=== PATIENT | female | born 1990 | race Two or more races ===

== ENCOUNTER 2024-02-25 10:45 | Observation (INO) | payer OTHER | END 2024-02-25 12:30 | disposition home or self-care (01) | LOC: UNDOADMOB 10:45 → LDRP 10:45 | PROVIDERS: ADMIT Obstetrics & Gynecology; ATTEND Obstetrics & Gynecology | DX: O24.419 Gestational diabetes mellitus in pregnancy, unspecified control (principal); Z3A.37 37 weeks gestation of pregnancy | CPT/HCPCS: 59025; 76818; 81002; 82948; 82962; 94760; G0378 ==

== ENCOUNTER 2024-02-28 09:29 | Observation (INO) | payer OTHER | END 2024-02-28 11:48 | disposition home or self-care (01) | LOC: UNDOADMOB 09:29 → LDRP 09:29 | PROVIDERS: ADMIT Obstetrics & Gynecology; ATTEND Obstetrics & Gynecology | DX: O24.419 Gestational diabetes mellitus in pregnancy, unspecified control (principal); O26.893 Other specified pregnancy related conditions, third trimester; R10.9 Unspecified abdominal pain; Z3A.37 37 weeks gestation of pregnancy | CPT/HCPCS: 59025; 76818; 81002; 82948; 82962; G0378 ==

== ENCOUNTER 2024-03-03 07:22 | Observation (INO) | payer OTHER | END 2024-03-03 14:43 | disposition home or self-care (01) | LOC: LDRP 12:31 → UNDOADMOB 12:31 → LDRP 13:17 | PROVIDERS: ADMIT Obstetrics & Gynecology; ATTEND Obstetrics & Gynecology | DX: O24.419 Gestational diabetes mellitus in pregnancy, unspecified control (principal); Z3A.38 38 weeks gestation of pregnancy | CPT/HCPCS: 59025; 76818; 81002; 82962; 94760; G0378 ==

== ENCOUNTER 2024-03-06 10:03 | Inpatient (IN) | payer OTHER ==
[2024-03-05 11:27] LABS: Eosinophils # (auto) 0.1 10 ^3/uL (0-0.8); Hemoglobin 9.8 g/dL (12.2-16.2); Lymphocytes # (auto) 1.5 10 ^3/uL (0.4-5.4); Monocytes # (auto) 0.7 10 ^3/uL (0-1.3); Nucleated Red Blood Cells % 0.1 %
[2024-03-05 11:29] LABS: Basophils # (auto) 0.1 10 ^3/uL (0-0.2); Basophils % (auto) 0.6 % (0.0-2.0); Eosinophils % (auto) 0.6 % (0.0-7.0); Hematocrit 30.9 % (36.0-46.0); Lymphocytes % (auto) 15.9 % (10.0-50.0); Mean Corpuscular Hemoglobin 23.7 pg (28.0-32.0); Mean Corpuscular Hgb Conc. 31.7 g/dL (32.0-36.0); Mean Corpuscular Volume 74.7 fL (80.0-100.0); Monocytes % (auto) 7.5 % (0.0-12.0); Neutrophils # (auto) 7.1 10 ^3/uL (1.6-8.6); Neutrophils % (auto) 75.4 % (37.0-80.0); Red Blood Cells 4.13 10^6/uL (4.0-5.20); Red Cell Distribution Width 17.3 % (11.8-14.3); White Blood Cell 9.4 10^3/uL (4.4-10.8)
[2024-03-05 11:35] LABS: Urine Bacteria FEW /hpf (None Seen); Urine Blood Negative /uL (Negative); Urine Mucus FEW (None Seen); Urine Protein, UAD 1+ (Negative); Urine Urobilinogen Normal (Negative); Urine WBC 5 /hpf (0 - 5)
[2024-03-05 11:36] LABS: Urine Color Yellow (Yellow)
[2024-03-05 11:37] LABS: Urine Clarity Cloudy (Clear)
[2024-03-05 11:46] LABS: INR 0.93 (0.9-1.15); Partial Thromboplastin Time 26.8 SEC (24.5-34.5); Prothrombin Time 9.9 sec (9.3-11.8)
[2024-03-05 11:47] LABS: Albumin 3.8 g/dL (3.2-4.8); Alkaline Phosphatase 140 U/L (46-116); Anion Gap 7 (5-15); Aspartate Aminotransferase 8 U/L (13-40); Bilirubin, Total 0.4 mg/dL (0.2-1.0); Calcium 8.8 mg/dL (8.5-10.1); Carbon Dioxide 22 mmol/L (20-30); Chloride 107 mmol/L (98-107); Glucose 93 mg/dL (74-106); Potassium 3.6 mmol/L (3.5-5.1); Sodium 136 mmol/L (136-145); Total Protein 6.8 g/dL (5.7-8.2)
[2024-03-05 11:49] LABS: Alanine Aminotransferase < 9 U/L (7-40); BUN/Creatinine Ratio 10.6 (10.0-20.0); Blood Urea Nitrogen < 5 mg/dL (9-23)
[2024-03-05 11:53] LABS: Amphetamine Screen, Urine Neg (NEGATIVE); Barbiturate Scree,Urine Neg (NEGATIVE); Benzodiazephine Screen, Urine Neg (NEGATIVE); Cannabinoid Screen, Urine Neg (NEGATIVE); Cocaine Screen, Urine Neg (NEGATIVE); Opiate Scree,Urine Neg (NEGATIVE); Phencyclidine Screen, Urine Neg (NEGATIVE)
[~2024-03-06] VITALS: Ht 175.3 cm; Wt 134.7 kg
[2024-03-07] VITALS (18 sets, daily range): BP systolic 81–123; BP diastolic 42–75; PULSE 81–101; RESP 16–18; TEMP 97.9–99.1; O2SAT 91–98
[2024-03-07] MEDS: LACTATED RINGER'S 1,000 ML IV ONE (05:03)
[2024-03-07] MEDS ORDERED: MORPHINE SULF PF 5 MG/10 ML VIAL ONE (06:42)
[2024-03-07] MEDS ORDERED: oxyTOCIN 10 UNIT/ML 10ML VIAL ONE (06:42)
[2024-03-07] MEDS ORDERED: ePHEDrine SULFATE 50 MG/ML AMP ONE (06:43)
[2024-03-07] MEDS: ceFAZolin 2 GM/D5W50ml 50 ML IV ONE (06:44)
[2024-03-07] MEDS: GUM (CHEWING) 1 GUM CHEW CHEW ONE (07:15)
[2024-03-07] MEDS ORDERED: ONDANSETRON HCL 4 MG/2 ML VIAL IV PRN ×2 (07:15→08:30)
[2024-03-07] MEDS: LACT. RINGERS/OXYTOCIN 20UNITS 1,000 ML IV ONE (07:15)
[2024-03-07] MEDS ORDERED: ONDANSETRON HCL 4 MG/2 ML VIAL ONE (07:19)
[2024-03-07] MEDS ORDERED: PHENYLEPHRINE HCL 10 MG/ML VL ONE (07:25)
[2024-03-07] MEDS ORDERED: HYDROmorphone HCL 2 MG/ML VL/or syr IV PRN ×2 (08:30)
[2024-03-07] MEDS ORDERED: KETOROLAC TROMETH 30 MG/ML 1ML VIAL IV PRN (08:30)
[2024-03-07] MEDS ORDERED: diphenhdrAMINE HCL 50 MG/1 ML VL IV PRN (08:30)
[2024-03-07] MEDS ORDERED: DexAMETHasone SOD PHOS 10MG/1ML VIAL INJ IV PRN (08:30)
[2024-03-07] MEDS: NALBUPHINE HCL 10 MG/1ml INJECTION SUBCUT ONE (08:30)
[2024-03-07] MEDS: ONDANSETRON HCL 4 MG/2 ML VIAL IV ONE (08:30)
[2024-03-07] MEDS ORDERED: MEPERIDINE HCL (25 MG/ML) 1ML VIAL IV PRN (08:30)
[2024-03-07] MEDS ORDERED: NALOXONE HCL 0.4 MG/ML VIAL IV PRN (08:30)
[2024-03-07 10:07] LABS: RPR Non Reactive (Non Reactive)
[2024-03-07] MEDS ORDERED: IBUP-1456 PO (14:39)
[2024-03-07] MEDS ORDERED: DOCU-94 PO (14:39)
[2024-03-07] MEDS ORDERED: HYDR-4902 PO (14:39)
[2024-03-07] MEDS ORDERED: ceFAZolin 1GM/50ML 50 ML IV SCH (15:00)
[2024-03-07] MEDS: ACETAMINOPHEN IV 1000 MG/100ML (10MG/ML) IV PRN (17:12)
[2024-03-07] MEDS: LACTATED RINGER'S 1,000 ML IV SCH (18:47)
[2024-03-07] MEDS: ceFAZolin 1GM/50ML 50 ML IV SCH (19:29)
[2024-03-07 21:57] LABS: Basophils # (auto) 0.1 10 ^3/uL (0-0.2); Eosinophils # (auto) 0 10 ^3/uL (0-0.8); Eosinophils % (auto) 0.4 % (0.0-7.0); Hemoglobin 9.2 g/dL (12.2-16.2); Lymphocytes # (auto) 1.5 10 ^3/uL (0.4-5.4); Monocytes # (auto) 0.8 10 ^3/uL (0-1.3); Neutrophils # (auto) 6.6 10 ^3/uL (1.6-8.6)
[2024-03-07 21:58] LABS: Basophils % (auto) 0.6 % (0.0-2.0); Hematocrit 29.2 % (36.0-46.0); Lymphocytes % (auto) 16.3 % (10.0-50.0); Mean Corpuscular Hemoglobin 24.2 pg (28.0-32.0); Mean Corpuscular Hgb Conc. 31.6 g/dL (32.0-36.0); Mean Corpuscular Volume 76.7 fL (80.0-100.0); Neutrophils % (auto) 73.7 % (37.0-80.0); Red Blood Cells 3.81 10^6/uL (4.0-5.20); Red Cell Distribution Width 17.7 % (11.8-14.3)
[2024-03-08] VITALS (12 sets, daily range): BP systolic 91–129; BP diastolic 49–86; PULSE 89–126; RESP 16–18; TEMP 97.9–98.9; O2SAT 91–97
[2024-03-08 06:39] LABS: Eosinophils # (auto) 0 10 ^3/uL (0-0.8); Hemoglobin 8.8 g/dL (12.2-16.2); Monocytes # (auto) 0.7 10 ^3/uL (0-1.3); Nucleated Red Blood Cells % 0.1 %
[2024-03-08 06:40] LABS: Basophils # (auto) 0.1 10 ^3/uL (0-0.2); Basophils % (auto) 0.8 % (0.0-2.0); Eosinophils % (auto) 0.2 % (0.0-7.0); Hematocrit 27.4 % (36.0-46.0); Lymphocytes # (auto) 1.4 10 ^3/uL (0.4-5.4); Lymphocytes % (auto) 17.2 % (10.0-50.0); Mean Corpuscular Hemoglobin 24.1 pg (28.0-32.0); Mean Corpuscular Hgb Conc. 32.2 g/dL (32.0-36.0); Mean Corpuscular Volume 74.9 fL (80.0-100.0); Monocytes % (auto) 8.3 % (0.0-12.0); Neutrophils % (auto) 73.5 % (37.0-80.0); Red Blood Cells 3.65 10^6/uL (4.0-5.20); Red Cell Distribution Width 17.1 % (11.8-14.3); White Blood Cell 8.2 10^3/uL (4.4-10.8)
[2024-03-08] MEDS ORDERED: IBUPROFEN 800 MG TAB PO PRN (06:45)
[2024-03-08] MEDS: DOCUSATE CALCIUM 240 MG CAP PO SCH (09:52)
[2024-03-08] MEDS: DOCUSATE SOD 100 MG CAP PO SCH (09:52)
[2024-03-08] MEDS: HYDROcodone-ACET 5/325MG TAB PO PRN (09:53)
[2024-03-08] MEDS: SIMETHICONE 80 MG CHEWABLE TABLET PO SCH (12:09)
[2024-03-08] MEDS: SODIUM CHLOR 0.9% PF (SALINE LOCK) 10ML VIAL/SYR IV SCH (14:00)
[2024-03-09] MEDS: HYDROcodone-ACET 5/325MG TAB PO PRN (02:36)
[2024-03-09 02:52] VITALS: BP 137/77; PULSE 99; RESP 18; TEMP 98.5; O2SAT 97
[2024-03-09 07:00] VITALS: BP 133/84; PULSE 97; RESP 16; TEMP 98.6; O2SAT 96
[2024-03-09 18:06] LABS: Treponema pallidum Ab (FTA-Ab) Non Reactive (Non Reactive)
== END 2024-03-09 11:30 | disposition home or self-care (01) | DRG 787 ==
LOC: LDRP 03-07 03:57 → OBSVTOIN 03-07 03:58 → LDRP 03-07 09:14
PROVIDERS: ADMIT Obstetrics & Gynecology; ATTEND Obstetrics & Gynecology
PROC: 10D00Z1 Extraction of Products of Conception, Low, Open Approach (ICD-10-PCS; principal; 2024-03-07 07:07)
DX: O34.211 Maternal care for low transverse scar from previous cesarean delivery (principal); N39.0 Urinary tract infection, site not specified; O23.43 Unspecified infection of urinary tract in pregnancy, third trimester; O99.013 Anemia complicating pregnancy, third trimester; O99.214 Obesity complicating childbirth; O24.420 Gestational diabetes mellitus in childbirth, diet controlled; Z37.0 Single live birth; E66.01 Morbid (severe) obesity due to excess calories; Z3A.39 39 weeks gestation of pregnancy; D50.9 Iron deficiency anemia, unspecified
CPT/HCPCS: 36415; 80053; 80307; 81001; 82948; 82962; 85025; 85610; 85730; 86592; 86803; 86850; 86900; 86901; 94760; 94762; 96360; 96361; G0378; J0131; J2405; J2590